=== PATIENT | female | born 1975 | race Caucasian/White ===

== ENCOUNTER 2022-06-25 10:04 | Emergency (ER) | payer OTHER ==
[~2022-06-25] VITALS: Ht 162.6 cm; Wt 56.7 kg
== END 2022-06-25 18:04 | disposition home or self-care (01) ==
LOC: ER 10:04
DX: M54.2 Cervicalgia (principal); R51.9 Headache, unspecified; R25.1 Tremor, unspecified; Z88.8 Allergy status to other drugs, medicaments and biological substances; Z88.0 Allergy status to penicillin; Z91.013 Allergy to seafood